=== PATIENT | male | born 1930 ===

== ENCOUNTER → 2018-04-04 | Outpatient (CLI) | payer OTHER | LOC: BHFA 13:30 | PROVIDERS: ATTEND Internal Medicine Cardiovascular Disease | DX: I25.10 Atherosclerotic heart disease of native coronary artery without angina pectoris (principal) | CPT/HCPCS: 78452; 93017; A9500; J2785 ==

== ENCOUNTER 2018-04-13 06:27 | Observation (INO) | payer OTHER ==
[2018-04-13] MEDS ORDERED: ASPIRIN EC 325 MG TAB PO ONE ×2 (06:31→06:35)
[2018-04-13] MEDS ORDERED: diphenhydrAMINE 25 MG CAP PO ONE ×2 (06:31→06:35)
[2018-04-13] MEDS ORDERED: NS 1,000 ML IV ONE (06:31)
[2018-04-13] MEDS ORDERED: FAMOTIDINE 20 MG TAB PO ONE (06:31)
[2018-04-13] MEDS ORDERED: DIAZEPAM 5 MG TAB PO ONE (06:31)
[2018-04-13] MEDS ORDERED: FAMOTIDINE 20 MG TAB ONE (06:35)
[2018-04-13] MEDS ORDERED: DIAZEPAM 5 MG TAB ONE (06:36)
--- NOTE | 2018-04-13 06:49 | PDPROPOC ---
Sedation Plan of Care Sedation Plan of Care: mental status noted, patient educated of risks, benefits , alternatives, patient can tolerate sedation ASA Classification: ASA 2 Planned drugs: fentanyl, midazolam Mallampati Score: Class 2 Mallampati Reference Image: Patient passed 3-3-2 rule?: Yes
--- NOTE | 2018-04-13 06:49 | PDHPUP ---
History & Physical Update H&P update statement: This history and physical update is based on an assessment of the patient which was completed after admission or registration (within 24 hours), but prior to the surgery/procedure. H&P update: H&P reviewed & patient examined, no change in patient's condition since H&P completed
[2018-04-13] MEDS ORDERED: CLOPIDOGREL BISULFATE 75 MG TAB ONE (06:51)
[2018-04-13] MEDS ORDERED: CLOPIDOGREL BISULFATE 75 MG TAB PO ONE ×2 (07:00→09:18)
[2018-04-13] MEDS ORDERED: LIDOCAINE 1% 300 MG/30 ML SDV ONE (07:05)
[2018-04-13] MEDS ORDERED: fentaNYL 100 MCG/2 ML INJ ONE (07:05)
[2018-04-13] MEDS ORDERED: MIDAZOLAM 2 MG/2 ML VIAL ONE (07:06)
[2018-04-13] MEDS ORDERED: IOPAMIDOL (ISOVUE-370) 150 ML BTL IV ONE ×2 (07:06→08:14)
[2018-04-13 07:18] LABS: PLATELET COUNT 192 10^3/uL (150-400)
[2018-04-13 07:25] LABS: INR 1.08 (0.83-1.16); PROTIME(PATIENT) 14.2 SEC (12.0-15.0)
[2018-04-13] MEDS ORDERED: ADENOSINE 90 MG/30 ML VIAL IV ONE (08:11)
[2018-04-13] MEDS ORDERED: NITROGLYCERIN 1,500 MCG/15 ML VIAL MISC ONE (08:12)
[2018-04-13] MEDS ORDERED: BIVALIRUDIN 250 MG/5 ML VIAL IV ONE (08:12)
[2018-04-13] MEDS ORDERED: HYDROCODONE/APAP 5/325 TAB PO PRN (09:18)
[2018-04-13] MEDS ORDERED: LORazepam 2 MG/ML INJ IVP PRN (09:18)
[2018-04-13] MEDS ORDERED: ATROPINE SULFATE 1 MG/10 ML SYR IVP PRN (09:18)
[2018-04-13] MEDS ORDERED: OXYCODONE/APAP 5/325 TAB PO PRN (09:18)
[2018-04-13] MEDS ORDERED: NITROGLYCERIN 0.4 MG BTL SL PRN (09:18)
[2018-04-13] MEDS ORDERED: ONDANSETRON 4 MG/2 ML VIAL IVP PRN (09:18)
[2018-04-13] MEDS ORDERED: TEMAZEPAM 15 MG CAP PO PRN (09:18)
--- NOTE | 2018-04-13 12:53 | ECHO ---
[email or web address] [address] [address] Main: [phone] Fax: Transthoracic Echocardiogram Name: JORGE ALBERTO CISSE MR#: [id number] Study Date: 04/13/2018 Study Time: 12:06 PM Date of : 1930 Age: 87 year(s) Height: 172.7 cm (68 in.) Weight: 99.79 kg (220 lb.) BSA: 2.13 m2 Gender: Male Examination: Echo Indication: CP/CABG Image Quality: Technically Difficult Contrast: No echo contrast agent administered Requested by: Major Guo BP: 145 mmHg/84 mmHg Heart Rate: Rhythm: Indication: CP/CABG Procedure Staff Patient Accounts Manager: Kendra Lundy RDCS Reading Physician: Major Guo MD Requesting Provider: Conclusions: Mild concentric LV hypertrophy. The ejection fraction is visually estimated to be 60 %. Mild to moderate mitral regurgitation. Technically difficult visualization of the aortic valve leaflets. Technically difficult visualization of the tricuspid valve. Technically difficult imaging -- patient supine post cath, limited parasternal imaging. Measurements: Chambers Valvular Assessment AV/MV Valvular Assessment TV/PV Normal Normal Normal Name Value Range Name Value Range Name Value Range Ao Cindy (2D): 2.9 cm (1.4 cm-2.6 AV Vmax: 0.85 m/s (1 m/s-1.7 cm) m/s) IVSd (2D): 1.2 cm (0.6 cm-1.1 AV maxP mmHg ( - ) cm) AV meanP mmHg ( - ) LVDd (2D): 4.8 cm (4.2 cm-5.9 MIRIAM (VTI): 2.3 cm ( - ) cm) MV E Vmax: 0.74 m/s ( - ) LVDs (2D): 3.0 cm (2.1 cm-4 MV A Vmax: 0.22 m/s ( - ) cm) MV E/A: 3.36 ( - ) LVPWd (2D): 1.2 cm (0.6 cm-1 cm) MV PHT: 0.058 s ( - ) LVOTd 2.0 cm 2.0 cm mm MVA (PHT): 3.8 s ( - ) LVEF (2D): 66 (>=54 %) Visual EF: 60 % Continued Measurements: Chambers Valvular Assessment AV/MV Name Value Name Value LADs: 5.2 cm MV DecTime: 190 m/s Patient: JORGE ALBERTO CISSE Study Date: 04/13/2018 Page 1 of 2 12:06 PM LADs Lon.9 cm MV E/E' Lateral: 8.20 LA Area: 20.9 cm2 LA Volume: 71 ml LA Volume Index: 33.3 ml/m2 Additional Vessels Name Value Ao Ascendin.0 cm Findings: Left Ventricle: Normal size left ventricle. Mild concentric LV hypertrophy. Normal global systolic LV function. The ejection fraction is visually estimated to be 60 %. No regional wall motion abnormality. Right Ventricle: Difficult visualization of the right ventricle. Left Atrium: The left atrium is mildly dilated. Right Atrium: Difficult visualization of the right atrium. Mitral Valve: The mitral valve is normal in appearance and function. Mild mitral valve leaflet calcification is present. Mild to moderate mitral regurgitation. No mitral stenosis is present. Aortic Valve: Aortic sclerosis is present. There is no significant aortic valve regurgitation. No aortic valve stenosis is present. Technically difficult visualization of the aortic valve leaflets. Tricuspid Valve: Technically difficult visualization of the tricuspid valve. Pulmonic Valve: The pulmonic vave is not well visualized. Aorta: Normal size aortic root measuring 2.9 cm. Normal size ascending aorta measuring 3.0 cm. IVC: Technically difficult subcostal imaging. Pericardium: No pericardial effusion. Exam Comments: Technically difficult imaging -- patient supine post cath, limited parasternal imaging. (No Signature Object) Patient: JORGE ALBERTO CISSE Study Date: 04/13/2018 Page 2 of 2 12:06 PM [id number]
--- NOTE | 2018-04-13 13:03 | CPIP ---
DATE OF PROCEDURE: 04/13/2018 INDICATION FOR PROCEDURE: Unstable angina. PROCEDURE: 1. Nonselective right groin sheathogram. 2. Seven-Maldivian sheath right common femoral vein. 3. Right heart catheterization with [place]Christian catheter. 4. Bilateral subsequent angiography. 5. Left heart catheterization. 6. Saphenous vein angiography presumably to the diagonal artery. 7. Saphenous vein angiography presumably to high marginal artery. 8. Saphenous vein angiography presumably to distal right coronary artery. 9. Left internal mammary artery angiography to left anterior descending. 10. Saphenous vein angiography to the . 11. Percutaneous coronary intervention of proximal saphenous vein graft to utilizing Syne rgy 3.5 x 20 drug-eluting stent with utilization of filter wire protection. HISTORY: Briefly, this is an 87-year-old male with history of CABG. The patient has been having wor sening unstable anginal symptoms as an outpatient. The patient was consented for right and left hear t catheterization. DESCRIPTION OF PROCEDURE: After informed consent was obtained, the patient was brought to [facility] where the right groin was prepped and draped in sterile fashion. Using lidocaine, a short 6-Maldivian sheath in the right femoral artery verified angiographically, a 7-Maldivian right common femoral vein. Through a 7-Maldivian sheath a [place]-Christian catheter was advanced. Wedge pressure was mean of 13, A-wave 14, V-wa ve 29, PA pressure systolic 41, diastolic 19, mean of 27. RV pressure 46, diastolic 5, end of 10. R A pressure mean of 9, A-wave 10, V-wave 10. Cardiac output was measured to be 4.4 by Abel with a car diac index of 2.0. AO sat was 96%. PA sat was 70%. [place]Christian catheter was then removed. A JL4 cat heter was then advanced to the left coronary system. Images of the left coronary system viewed, show ed short left main. There appeared to be a 90% to 99% occlusion of the proximal LAD feeding just wit h some collateralization to a small diagonal artery. The proximal left circumflex artery had tubular high-grade calcified 50% to 60% disease proximally followed by another area of 60% to 70% going into a marginal 1 artery which distally appeared to be healthy. There was also marginal 2 artery, which was smaller, but free of disease. Again, there was diffuse disease in his left circumflex system goi ng into either of these branches ranging up to 70% to 80%. After these images were obtained the JL4 catheter was removed. The JR4 catheter was advanced to the right coronary artery. Images of the rig ht coronary artery revealed 90% ostial RCA, followed by an area of 100% subtotal occlusion of the pro ximal RCA with right to right collateralization weakly filling the distal RCA. The JR catheter was t hen pulled back into the 1st vein graft which was 100% occluded. The catheter was then pulled back t o a 2nd presumed vein graft which was 100% occluded. Again, these 2 occluded grafts were left-sided most likely indicating a diagonal and marginal graft. The catheter was then pulled back to a 3rd gra ft which was a patent graft with a tubular focal area of 70% stenosis proximally. Distally, the marcus t appeared to be widely patent anastomosing into what appeared to be an . The d istally appeared to be widely free of disease. After these images were obtained, the catheter was re moved and placed in the left subclavian artery Angiography of the left subclavian artery showed dagmar l proximal aorta with a kink in the mid aorta. We switched out for Glidewire and then swi tched out for an IMC. Angiography of the left internal mammary artery showed widely patent ARANGO prox imally, mid and distal going into an LAD. However, at the distal anastomosis, there appeared to be a t least a 50% to 60% pinch at the level of the anastomotic site onto the LAD. However, the LAD dista l was a diffusely diseased vessel with subtotal occlusion in its distal portion. After these images had been obtained, the IMC catheter was removed. A multipurpose catheter was then advanced and a sheng y atretic and tiny filling for all intents and purposes occluded graft most likely going to the right coronary artery was injected. The multipurpose catheter was removed. The pigtail catheter was adva nced. EDP was 15 mmHg. No ventriculogram was obtained secondary to the patient's underlying renal i nsufficiency. There was no pull-back gradient between the LV and the aorta. Pigtail catheter remove d was over the 0.035 wire. INTERVENTIONAL REPORT: At this time the patient was started on Angiomax bolus and drip. 600 of Plav ix p.o. was administered before the case. Given the fact that the patient has 3/5 bypasses that are clearly occluded and that his ARANGO graft is feeding an almost subtotally occluded LAD, the only logic al target of intervention would be the saphenous vein graft to the given the fact that the re was a short focal lesion in this graft and distally the graft was widely patent and anastomosed in to a very healthy vessel. The [place] left circumflex system though heavily diseased would be much mo re complicated intervention and it appeared to be at this time a more stable calcified situation. At this time utilizing an LCB 6-Maldivian guide catheter, the saphenous vein graft to the was i njected. A filter wire was placed distally. After the filter wire was placed we then proceeded with primary stenting of the proximal graft with a 3.5 x 20 Synergy stent deployed at [address] deployment angiographic images were obtained, which showed excellent patency of the stented area with no evidence of dissection or perforation. There was excellent flow through the entire graft to the distal segment with no evidence of no reflow phenomenon. At this time, the filter wire was succe ssfully retrieved. The wire was removed. The guide catheter was removed. The right groin was close d with 6-Maldivian Angio-Seal. The 7-Maldivian sheath was sutured in place. Patient tolerated the procedu re well with no complications. IMPRESSION: 1. Three out of 5 occluded bypass grafts. 2. Patent left internal mammary artery to left anterior descending, however, there was a distal anas tomotic pinch of the left internal mammary artery to left anterior descending with diffuse subtotal o cclusion of the left anterior descending distally. 3. Severe [place] coronary artery disease with subtotally occluded right coronary artery as well as s ubtotally occluded left anterior descending. 4. Diffusely diseased left circumflex system, but diffusely diseased with high-grade calcific but st able disease in the left circumflex system. 5. Percutaneous coronary intervention of a high-grade proximal saphenous vein graft to ut ilizing filter wire and Synergy drug-eluting stent. 6. Normal left ventricular end diastolic pressure. 7. Normal pulmonic pressures. 8. Normal cardiac output. PLAN: The patient will be started on aspirin and Plavix. Will continue his home medications. Admit to observation. If the patient's anginal symptoms continue despite this intervention today, we woul d suggest starting the patient on Imdur or Ranexa as an attempted intervention on the circumflex syst em would be quite complicated involving potentially Rotablation/BELL HOLE DIGGER equipment. /[id number]/MODL
[2018-04-14 04:16] LABS: PLATELET COUNT 166 10^3/uL (150-400)
[2018-04-14] MEDS ORDERED: LEVOTHYROXINE 50 MCG TAB PO SCH (06:00)
[2018-04-14 08:07] VITALS: BP 135/89
[2018-04-14] MEDS ORDERED: ASCORBIC ACID 500 MG TAB PO SCH (09:00)
[2018-04-14] MEDS ORDERED: PANTOPRAZOLE SODIUM 40 MG TAB PO SCH (09:00)
[2018-04-14] MEDS ORDERED: CLOPIDOGREL BISULFATE 75 MG TAB PO SCH (09:00)
[2018-04-14] MEDS ORDERED: ASPIRIN EC 325 MG TAB PO SCH (09:00)
[2018-04-14] MEDS ORDERED: ATENOLOL 25 MG TAB PO SCH (09:00)
[2018-04-14] MEDS ORDERED: LOSARTAN POTASSIUM 50 MG TAB PO SCH (09:00)
[2018-04-14] MEDS ORDERED: Herbals/Supplements -Info Only PO SCH (09:00)
[2018-04-14] MEDS ORDERED: PRAVASTATIN SODIUM 40 MG TAB PO SCH (09:00)
[2018-04-14] MEDS ORDERED: ASPIRIN 81 MG CHEWABLE TAB PO SCH (09:00)
[2018-04-14] MEDS ORDERED: NITROGLYCERIN 0.4 MG BTL SL PRN (09:43)
--- NOTE | 2018-04-14 21:47 | GDS ---
ADMIT DIAGNOSES: 1. Coronary artery disease. 2. Abnormal nuclear stress test. 3. Planned cardiac angiogram. 4. History of coronary artery bypass graft. 5. Hyperlipidemia. 6. Chronic atrial fibrillation. DISCHARGE DIAGNOSES: 1. Status post cardiac angiogram with lesion in the posterior saphenous vein graft to left posterior descending. 2. Past coronary artery bypass graft. 3. Hyperlipidemia. 4. Chronic atrial fibrillation. Percutaneous coronary intervention of the vessel was successful with stent placement. He was then taken to PCU for overnight observation where he has done well. During the night he had a 16 beat run of rapid atrial fibrillation with aberrancy at rate 150-170. He will be discharged on a Beta marsha. He was asymptomatic with the episode. He has not had any additional rapid atrial runs. At this time, he has ambulated in hallways with good tolerance. He has no chest pain or shortness of breath. Telemetry shows atrial fibrillation, well rate controlled at 70 to 80 beats per minute. At this time, he currently is stable for discharge. MEDICATIONS: He will go home on losartan 100 mg daily, Synthroid 50 mcg daily, atenolol 25 mg daily, omeprazole 20 mg daily, lovastatin 80 mg daily, herbal supplements daily, vitamin C 1000 mg daily, aspirin 81 mg daily, Plavix 75 mg daily, nitroglycerin 0.4 mg sublingual every 5 minutes as needed for chest pain. ALLERGIES: He has no known allergies. EXAM: VITAL SIGNS: On day of discharge, blood pressure 135/89, heart rate atrial fibrillation at 70 to 80 beats per minute, heart rate irregularly regular. HEART: No murmurs, rubs, gallops. LUNGS: Sounds are clear to auscultation. No wheezes, rales, or rhonchi. EXTREMITIES: No peripheral edema. Right groin site is intact with no bleeding, induration, or pain. PROCEDURE: 1. 04/13/[address] Major Guo. Cardiac angiogram with percutaneous coronary intervention and selective right groin sheathogram. 2. Right heart catheterization with [place]-Christian catheter. 3. Bilateral angiography. 4. Left heart catheterization. 5. Saphenous vein angiography presumably to the diagonal artery. 6. Saphenous vein angiography presumably to high marginal artery. 7. Saphenous vein angiography presumably to distal right coronary artery. 8. Left internal mammary artery angiography to left anterior descending. 9. Percutaneous coronary intervention of proximal saphenous vein graft to posterior left descending using Synergy 3.5 x 20 drug-eluting stent with utilization of FilterWire protection. IMPRESSION: 1. Percutaneous coronary intervention of high-grade proximal saphenous vein graft to left posterior descending using FilterWire and Synergy drug-eluting stent. 2. Normal left ventricular end-diastolic pressure. 3. Normal pulmonic pressures. 4. Normal cardiac output. PLAN: The patient will be started on aspirin and Plavix. He will continue home medications. Consider starting patient on Imdur or Ranexa as an attempt at intervention on the circumflex system, which would be quite complicated, involving potential rotablation/BOX PRESS OPERATOR equipment. DISCHARGE PLAN: 1. Groin precautions for 7 days. 2. No heavy lifting, pushing, pulling greater than 10 pounds. 3. No sitting in a tub of water. Okay to shower. 4. Keep bowel soft. Okay to use stool softener. 5. Should groin site bleed, hold continuous firm pressure. 6. Follow up in clinic with Dr. Ashraf in 7 days. Clinic will call with appointment. 7. At this time, the patient is stable for discharge. /[id number]/MODL MTDD
--- NOTE | 2018-04-15 14:54 | CPEKG ---
Test Reason : OPEN Blood Pressure : / mmHG Vent. Rate : 058 BPM Atrial Rate : 000 BPM P-R Int : 388 ms QRS Dur : 106 ms QT Int : 460 ms P-R-T Axes : 000 043 027 degrees QTc Int : 452 ms Atrial fibrillation Confirmed by Tevin Schreiber ([id number]) on 04/15/2018 2:54:25 PM Referred By: Confirmed By:Tevin Schreiber
--- NOTE | 2018-04-15 14:55 | CPEKG ---
Test Reason : OPEN Blood Pressure : / mmHG Vent. Rate : 073 BPM Atrial Rate : 000 BPM P-R Int : 170 ms QRS Dur : 105 ms QT Int : 412 ms P-R-T Axes : 000 016 021 degrees QTc Int : 454 ms Atrial fibrillation Confirmed by Tevin Schreiber ([id number]) on 04/15/2018 2:54:54 PM Referred By: Confirmed By:Tevin Schreiber
--- NOTE | 2018-04-15 14:57 | CPEKG ---
Test Reason : OPEN Blood Pressure : / mmHG Vent. Rate : 071 BPM Atrial Rate : 000 BPM P-R Int : 226 ms QRS Dur : 105 ms QT Int : 413 ms P-R-T Axes : 000 039 037 degrees QTc Int : 449 ms Atrial fibrillation Confirmed by Tevin Schreiber ([id number]) on 04/15/2018 2:56:51 PM Referred By: Confirmed By:Tevin Schreiber
== END 2018-04-14 11:02 | disposition home or self-care (01) ==
LOC: FCATH 06:27 → F2W 09:18
PROVIDERS: ADMIT Internal Medicine Cardiovascular Disease; ATTEND Internal Medicine Cardiovascular Disease
DX: I25.10 Atherosclerotic heart disease of native coronary artery without angina pectoris (principal); E78.5 Hyperlipidemia, unspecified; I48.2 Chronic atrial fibrillation
CPT/HCPCS: 93005; 93306; 93461; C1760; C1874; C1884; C1887; C9604; J0583; J1644; J2250; J3010; Q9967; J0153